=== PATIENT | female | born 1995 | race Caucasian/White ===

== ENCOUNTER 2024-05-04 12:40 | Emergency (ER) | payer OTHER, SELFPAY ==
--- NOTE | 2024-05-04 12:44 | ED_ITS ---
HPI - Dizziness General Chief Complaint: Upper Respiratory Infection Stated Complaint: dizziness Time Seen by Provider: 05/04/24 12:44 Source: patient Mode of arrival: ambulatory Limitations: no limitations History of Present Illness HPI Narrative: Sangeeta is a 28-year-old female patient presenting to the clinic today with complaints of dizziness x2 hours. She reports symptoms started at home when she was sitting up from a chair. [place] cold and clammy at that time she had dizziness with nausea but no vomiting. She reports that the room is spinning. Symptoms worsen with position changes and turning her head side to side-worse on the right. No history of diabetes, orthostatic hypotension, cardiac history, or vertigo. States her menses are normal for her and not heavy. She is currently on her menses Related Data Allergies Allergy/AdvReac Type Severity Reaction Status Date / Time No Known Allergies Allergy Verified 05/04/24 12:55 Review of Systems Review of Systems: Pertinent positives per HPI. Patient denies any fever, chills, rash, headache, visual changes, cough, shortness of breath, chest pain, palpitations, nausea, vomiting, diarrhea, constipation, abdominal pain, or any urinary issues. PMFSH Comments At the time of my signature, I reviewed and agree with the nursing past medical, surgical, social, and family history. There is no relevant family history p ertinent to the patient complaint. Exam Narrative: General: Well-developed, well nourished, in no apparent distress Head: Normocephalic, atraumatic Eyes: Pupils equally round and reactive to light bilaterally, EOM intact, sclera and conjunctive clear, no discharge, lids normal, no nystagmus Ears: TMs intact and clear, ear canals clear, no drainage, grossly hearing normal. Nose: Nares patent, no discharge, no inflammation, no sinus tenderness. Mouth: Oropharynx without lesions or masses, good dentition, MMM. Tongue midline, even rise and fall of uvula Neck: Supple, trachea midline, no enlargement of anterior or posterior cervical nodes, no thyroid masses or goiter palpable. Cardio: Regular rate and rhythm, s1 and s2 normal, no murmur appreciated. Resp: Clear to auscultation bilaterally anteriorly and posteriorly, no rhonchi, rales, wheezing or rubs Musculoskeletal: No deformity, non-tender to palpation, grossly normal range of motion, muscle strength strong and equal, peripheral pulse strong, no edema, no cyanosis, normal gait and station, dizziness room spinning with position lane hernandez and turning her head from side to side. Neuro: Alert and oriented x4 with normal speech, no focal deficits, cranial nerves I through XII intact, muscle strength 5 out of 5, sensation intact curtis aterally, negative Romberg test Course Course Emergency Course: Portions of this record may have been created with voice recognition software. Level of Care: Express Care Visit Vital Signs Vital signs: Vital Signs Temperature 36.8 C 05/04/24 12:54 Pulse Rate 61 05/04/24 12:54 Respiratory Rate 14 05/04/24 12:54 Blood Pressure 133/77 05/04/24 12:54 Pulse Oximetry 100 05/04/24 12:54 Oxygen Delivery Room Air 05/04/24 12:54 Temperature 36.8 C 05/04/24 12:54 Pulse Rate 57 L 05/04/24 13:17 Respiratory Rate 14 05/04/24 12:54 Blood Pressure 122/79 05/04/24 13:17 Pulse Oximetry 100 05/04/24 12:54 Oxygen Delivery Room Air 05/04/24 12:54 Vital signs reviewed MDM - Dizziness MDM Narrative Medical decision making narrative: At the time of visit patient is resting comfortably on the exam table. Patient appears to be nontoxic. EKG: EKG shows sinus bradycardia with heart rate of 57 beats per minute. No ST elevation, depression, or T-wave inversion noted. Labs: Blood sugar was 86 in the clinic today. Urinalysis shows 3+ blood and ketones however this is likely skewed due to patient being on her menses. Urine preg negative Orthostatic blood pressures: Lying blood pressure 122/79 with heart rate of 57, sitting blood pressure 120/80 with heart rate of 66, standing blood pressure 132/81 with a heart rate of 64 Plan: I suspect patient has right-sided BPPV. Neuro checks are normal in the clinic today. Niyah maneuver was performed in the clinic patient symptoms improved. Home Niyah maneuver procedure information was given to the patient. Will send in Rx for Meclizine as needed for dizziness. Supportive measures were discussed with the patient and they voiced understanding discharge instructions and agrees to treatment plan. Return precautions reviewed Differential Diagnosis Differential diagnosis: Likely adverse reaction to drug, benign paroxysmal positional vertigo, orthostatic hypotension, vertebral basilar insufficiency, cerebrovascular accident, acute vestibular neuronitis, transient cerebral ischemia and other (Vertigo) Lab Data Labs: Lab Results 05/04/24 Range/Units 13:24 POC Capillary Glucose 86 (65-105) mg/dl ECG Data EKG #1: Attestation: I personally reviewed and interpreted this ECG as follows: ECG completion date: 05/04/24 ECG completion time: 13:20 Prior ECG tracings: not available for review Interpretation: EKG shows sinus bradycardia with heart rate of 57 beats per minute. No ST elevation, depression, or T-wave inversion noted. Will is 135 milliseconds, QRS durations 84 milliseconds, QT-QTC is 416-for her 11 milliseconds, P-R-T axis is 55 97 54 Discharge Plan Discharge Clinical Impression: Benign paroxysmal positional vertigo of right ear Patient Disposition: Home, Self-Care Condition: Stable Instructions: Antibiotic Form, Benign Paroxysmal Positional Vertigo (ED), Dizziness (ED) Additional Instructions: EKG is reassuring in the clinic today Orthostatic blood pressures are within normal limits Urinalysis shows 3+ blood and ketones.-likely skewed due to blood in your urine from your menses Bedside test is negative Blood sugar was 86 which is normal I suspect you have BPPV. Complete the home Niyah maneuver as needed for dizziness May take meclizine as needed for dizziness Increase fluids and stay well hydrated Change positions slowly Eat well-balanced meals Follow-up with your primary care doctor next week Go to the emergency room if symptoms worsen Prescriptions: New meclizine 25 mg tablet 25 mg PO TID PRN (Reason: dizziness) 7 Days Qty: 21 0RF Follow-up/Referrals: [facility], [Primary Care Provider] - Time of Disposition: 13:49 Quality NIHSS Nursing Documentation ED NIHSS nursing documentation: reviewed/agree
[2024-05-04 12:54] VITALS: BP 133/77; PULSE 61; RESP 14; TEMP 36.8; O2SAT 100
--- NOTE | 2024-05-04 13:08 | ECG_ITS ---
Test Date: 2024-05-04 13:20:20 Measurements Intervals [place] Rate: 57 P: 55 IN: 135 QRS: 97 QRSD: 84 T: 54 QT: 416 QTc: 408 Interpretive Statements SINUS BRADYCARDIA BORDERLINE RIGHT AXIS DEVIATION [QRS AXIS > 90] No previous ECG available for comparison Electronically Signed On 05-04-2024 15:40:23 CDT by Dov Britt M.D.
[2024-05-04 13:13] VITALS: BP 120/80; PULSE 66
[2024-05-04 13:15] VITALS: BP 132/81; PULSE 64
[2024-05-04 13:17] VITALS: BP 122/79; PULSE 57
[2024-05-04 13:27] LABS: Glucose Point of Care 86 mg/dl (65-105)
[2024-05-04 13:53] LABS: BEDSIDEPREGUCG Negative (Negative)
[2024-05-04 13:54] LABS: EDUAAPPEAR Clear; EDUABILI Negative (Negative); EDUABLOOD 3+ (Negative); EDUACOLOR1 Yellow; EDUAGLUCOSE Negative (Negative); EDUAKETONE 2+ (Negative); EDUALEUKO Negative (Negative); EDUANITRATE Negative (Negative); EDUAPROTEIN Negative (Negative); EDUASPGRAVITY 1.025; EDUAUROBILI 0.2
== END 2024-05-04 13:55 | disposition home or self-care (01) ==
LOC: EXPTROY 12:47
PROVIDERS: Emergency Provider Nurse Practitioner Family
DX: H81.11 Benign paroxysmal vertigo, right ear (principal)
CPT/HCPCS: 81003; 81025; 82948; 93005; 99203; G0463